=== PATIENT | female | born 2000 | race Caucasian/White ===

== ENCOUNTER 2019-01-20 18:40 | Emergency (ER) | payer BC, OTHER ==
[2019-01-20] MEDS ORDERED: Ketorolac Tromethamine 60 MG/2 ML VIAL ONE (19:15)
[2019-01-20] MEDS ORDERED: Bacitracin 1 PK ONE (19:15)
== END 2019-01-20 19:36 | disposition home or self-care (01) ==
LOC: ERS 18:40
DX: S50.02XA Contusion of left elbow, initial encounter (principal); S50.812A Abrasion of left forearm, initial encounter; V89.2XXA Person injured in unspecified motor-vehicle accident, traffic, initial encounter
CPT/HCPCS: 96372; 99284; J1885